=== PATIENT | female | born 1940 | race Caucasian/White ===

== ENCOUNTER 2017-12-28 17:45 | Emergency (ER) | payer OTHER, MEDICAID ==
[~2017-12-28] VITALS: Ht 175.3 cm; Wt 86.2 kg
[2017-12-28 17:58] VITALS: BP_SYST 140
[2017-12-28 20:34] VITALS: BP_SYST 136
== END 2017-12-28 20:34 | disposition home or self-care (01) ==
LOC: SED 17:45
DX: S83.91XA Sprain of unspecified site of right knee, initial encounter (principal); M54.9 Dorsalgia, unspecified; M10.9 Gout, unspecified; R03.0 Elevated blood-pressure reading, without diagnosis of hypertension; E03.9 Hypothyroidism, unspecified; Z86.73 Personal history of transient ischemic attack (TIA), and cerebral infarction without residual deficits; W19.XXXA Unspecified fall, initial encounter; Y93.89 Activity, other specified; Y92.89 Other specified places as the place of occurrence of the external cause; Y99.8 Other external cause status
CPT/HCPCS: 72100-TC; 72170-TC; 72220-TC; 73560-TC; 99284

== ENCOUNTER 2018-02-09 20:59 | Emergency (ER) | payer OTHER, MEDICAID ==
[~2018-02-09] VITALS: Ht 175.3 cm; Wt 97.5 kg
--- NOTE | 2018-02-09 20:59 | NUR ---
Patient to ER bed 4 to gown for evaluation. Side rails up.
[2018-02-09 21:01] VITALS: BP_SYST 134
--- NOTE | 2018-02-09 21:04 | NUR ---
ER Dr. Pat at bedside examining patient.
--- NOTE | 2018-02-09 21:05 | NUR ---
Pt was brought in by ambulance C/O mechanical fall. Pt is from [facility] facility and stated she fell out of her chair while reaching for her long term. Pt states she fell on her right side and denies KO. Pt has right wrist pain and a skin tear on the right forearm. Pain is currently a 2/10, denies any chest pain, shortness of breath, nausea or vomiting at this time. Vital signs are stable and will continue to monitor.
[2018-02-09 21:44] LABS: BASOPHILS % (AUTO) 1.1 % (0.0-2.0); EOSINOPHILS # (AUTO) 0.1 K/uL (0.0-0.4); EOSINOPHILS % (AUTO) 3.3 % (0.0-4.0); HEMATOCRIT 24.5 % (36-48); HEMOGLOBIN 8.5 g/dL (12.0-16.0); LYMPHOCYTES # (AUTO) 1.3 K/uL (1.0-5.5); LYMPHOCYTES % (AUTO) 32.3 % (20.5-51.5); MEAN CORPUSCULAR HEMOGLOBIN 35 pg (27-31); MEAN CORPUSCULAR HGB CONC 35 % (32-36); MEAN CORPUSCULAR VOLUME 102 fL (79.0-98.0); MONOCYTES # (AUTO) 0.4 K/uL (0.0-1.0); MONOCYTES % (AUTO) 10.3 % (1.7-9.3); NEUTROPHILS # (AUTO) 2.3 K/uL (1.8-7.7); PLATELET COUNT (AUTO) 249 K/uL (130-430); RED BLOOD CELL COUNT(AUTO) 2.41 MIL/uL (4.2-6.2); RED CELL DISTRIBUTION WIDTH 14.9 % (9.0-15.0); WHITE BLOOD COUNT (AUTO) 4.1 K/uL (4.8-10.8)
[2018-02-09 21:50] LABS: ANION GAP 11 (5-15); CALCIUM 8.4 mg/dL (8.4-11.0); CHLORIDE 100 mmol/L (98-107); GLUCOSE 85 mg/dL (70-99); POTASSIUM 3.9 mmol/L (3.5-5.1); SODIUM SERUM 134 mmol/L (136-145); UREA NITROGEN, BLOOD 33 mg/dL (8-21)
[2018-02-09 21:53] LABS: INR 1.2 (0.8-1.2); PROTHROMBIN TIME 11.7 SECS (9.5-12.5)
[2018-02-09 21:54] LABS: ALANINE AMINOTRANSFERASE 17 U/L (12-78); ASPARTATE AMINOTRANSFERASE 30 U/L (10-37); TOTAL BILIRUBIN 0.4 mg/dL (0.0-1.0)
[2018-02-09 21:57] LABS: ALCOHOL, BLOOD < 3 mg/dL (<10)
--- NOTE | 2018-02-09 22:03 | NUR ---
Critical lab value reported. Troponin level of 0.064. ED MD Pat made aware.
--- NOTE | 2018-02-09 22:20 | NUR ---
Pt's wound was assessed on the pt's right calf. Wound is cleaned and dressing applied. Pt denies any pain and tolerated proceedure well. Will continue to monitor.
--- NOTE | 2018-02-09 22:25 | NUR ---
Pt's daughter Génesis called and requested to be contacted for any updates. Génesis [phone]
--- NOTE | 2018-02-09 23:00 | NUR ---
Pt was straight cathed for urine specimen collection. Pt tolerated proceedure well, no acute distress noted at this time.
--- NOTE | 2018-02-10 00:10 | NUR ---
Pt is resting quietly in bed, no acute distress noted at this time. Vital signs are stable will continue to monitor.
[2018-02-10 00:27] LABS: BILIRUBIN,URINE NEGATIVE (NEGATIVE); BLOOD, URINE NEGATIVE (NEGATIVE); CLARITY/URINE HAZY (CLEAR); COLOR,URINE YELLOW (YELLOW); GLUCOSE,URINE NEGATIVE (NEGATIVE); KETONES,URINE NEGATIVE (NEGATIVE); LEUKOCYTE ESTERASE ,URINE TRACE (NEGATIVE); NITRITE, URINE POSITIVE (NEGATIVE); PH,URINE 5.5 (5.0-8.0); PROTEIN URINE 1+ (NEGATIVE); UROBILINOGEN,URINE 0.2 (0.2-1.0)
[2018-02-10 00:39] LABS: BACTERIA,URINE MANY /HPF (None Seen); RBC,URINE 0-3 /HPF (0-3)
[2018-02-10 00:43] LABS: BARBITURATE, URINE NEGATIVE (NEG <=200); BENZODIAZEPINE, URINE NEGATIVE (NEG <=150); CANNABINOID, URINE NEGATIVE (NEG <=50); COCAINE, URINE NEGATIVE (NEG <=150); METHAMPHETAMINES SCREEN,URINE NEGATIVE (NEG <=500); OPIATE, URINE NEGATIVE (NEG <=100); PHENCYCLIDINE SCREEN,URINE NEGATIVE (NEG <=25); UR TRICYCLIC ANTIDEPRESSANTS NEGATIVE (NEG <=300); URINE AMPHETAMINE NEGATIVE (NEG <=500); URINE METHADONE NEGATIVE (NEG <=200); URINE OXYCODONE SCREEN NEGATIVE (NEG <=100); URINE PROPOXYPHENE SCREEN NEGATIVE (NEG <=300)
[2018-02-10] MEDS ORDERED: cefTRIAXone 1 GM IVPB PREMIX 50 ML IV ONE (00:45)
--- NOTE | 2018-02-10 01:50 | NUR ---
Pt is resting quietly in bed, no acute distress noted at this time.
--- NOTE | 2018-02-10 02:20 | NUR ---
Pt is resting quietly in bed, Natalie GODFREY at bedside assisting pt into her clothes. Vitals are stable at this time will continue to monitor.
[2018-02-10] MEDS ORDERED: ASPI-858 PO (02:22)
[2018-02-10] MEDS ORDERED: COLC0.6T67 PO (02:22)
[2018-02-10] MEDS ORDERED: FURO-150 PO (02:22)
[2018-02-10] MEDS ORDERED: LEVO100T9 PO (02:22)
[2018-02-10] MEDS ORDERED: HYDR-3610 PO (02:22)
[2018-02-10] MEDS ORDERED: CARV6.2554 PO (02:22)
[2018-02-10] MEDS ORDERED: IBUP-1969 PO (02:22)
[2018-02-10] MEDS ORDERED: POTA8TAB4 PO (02:22)
[2018-02-10] MEDS ORDERED: TYC3 PO (02:22)
[2018-02-10] MEDS ORDERED: MUPI15CR12 TP (02:22)
[2018-02-10] MEDS ORDERED: DOCU-144 PO (02:22)
[2018-02-10] MEDS ORDERED: ACET325S17 PO (02:22)
--- NOTE | 2018-02-10 02:35 | NUR ---
[facility] was called in regards to this patient, brief report was given and the facility is expecting her back.
--- NOTE | 2018-02-10 02:40 | NUR ---
EMS arrived for transport. Report was given to EMS prior to transport. Pt is in stable condition, no acute distress noted.
[2018-02-10 02:45] VITALS: BP_SYST 98
== END 2018-02-10 02:45 | disposition home or self-care (01) ==
LOC: SED 20:59
DX: S63.501A Unspecified sprain of right wrist, initial encounter (principal); L97.919 Non-pressure chronic ulcer of unspecified part of right lower leg with unspecified severity; N18.9 Chronic kidney disease, unspecified; D64.9 Anemia, unspecified; E03.9 Hypothyroidism, unspecified; M10.9 Gout, unspecified; Z86.73 Personal history of transient ischemic attack (TIA), and cerebral infarction without residual deficits; Z79.82 Long term (current) use of aspirin; Z79.899 Other long term (current) drug therapy
CPT/HCPCS: 36415; 71045; 80053; 80307; 81000; 83880; 84484; 85025; 85610; 85730; 87086; 93005; 96365; 99284; G0482; J0696

== ENCOUNTER 2018-02-11 17:08 | Inpatient (IN) | payer OTHER, MEDICAID ==
[~2018-02-11] VITALS: Ht 175.3 cm; Wt 84.8 kg
[2018-02-11 17:08] VITALS: BP_SYST 128
[~2018-02-11 17:08] MED LIST: ACET325S17 PO; ASPI-858 PO; CARV6.2554 PO; COLC0.6T67 PO; DOCU-144 PO; FURO-150 PO; HYDR-3610 PO; IBUP-1969 PO; LEVO100T9 PO; MUPI15CR12 TP; POTA8TAB4 PO; TYC3 PO
--- NOTE | 2018-02-11 17:08 | NUR ---
BROUGHT IN BY [facility] FROM [facility] AND PLACED IN BED #6, TRIAGED. REPORT GIVEN TO ALISSON
--- NOTE | 2018-02-11 17:40 | NUR ---
DR COLE IN ROOM FOR EXAM.
--- NOTE | 2018-02-11 17:45 | NUR ---
PT COMES TO ER WITH C/O JU LOWER EXTREMITY DISCOMFORT. RT GREATER THAN LEFT. OPEN WOUND NOTED TO RT LOWER EXTREMITY, PUS DRAINAGE OBSERVED ON DRESSSING, REPORTS THAT SHE HURT HERSELF WHEN GETTING UP FROM WHEELCHAIR. MULTIPLE BRUISES NOTED TO JU ARMS, REPORTS RECENT FALLS. PT AAOX3, BUT HAS AN UNSTAEDY GAIT.. BLE EDEMATOUS 3+EDEMA, DRY SKIN, MOTTLED. PT DENIES ANY FEVERS/CHILLS, DENIES ANY ACUTE PAIN, DENIES SOB OR CP. AFEBRILE AT THIS TIME, AWAIITNG FOR ER MD LONG.
--- NOTE | 2018-02-11 17:53 | NUR ---
IV SL TO RT ARM, FLUSHING WELL. LAB AT BEDSIDE, CXR DONE
[2018-02-11 18:15] LABS: BASOPHILS % (AUTO) 0.7 % (0.0-2.0); EOSINOPHILS # (AUTO) 0.2 K/uL (0.0-0.4); EOSINOPHILS % (AUTO) 4.8 % (0.0-4.0); HEMOGLOBIN 7.8 g/dL (12.0-16.0); LYMPHOCYTES # (AUTO) 0.9 K/uL (1.0-5.5); LYMPHOCYTES % (AUTO) 29.4 % (20.5-51.5); MEAN CORPUSCULAR HEMOGLOBIN 34 pg (27-31); MEAN CORPUSCULAR HGB CONC 34 % (32-36); MEAN CORPUSCULAR VOLUME 102 fL (79.0-98.0); MONOCYTES # (AUTO) 0.3 K/uL (0.0-1.0); MONOCYTES % (AUTO) 9.3 % (1.7-9.3); NEUTROPHILS # (AUTO) 1.8 K/uL (1.8-7.7); NEUTROPHILS % (AUTO) 55.8 % (40.0-70.0); PLATELET COUNT (AUTO) 230 K/uL (130-430); RED BLOOD CELL COUNT(AUTO) 2.27 MIL/uL (4.2-6.2); RED CELL DISTRIBUTION WIDTH 14.6 % (9.0-15.0); WHITE BLOOD COUNT (AUTO) 3.2 K/uL (4.8-10.8)
[2018-02-11 18:18] LABS: ANION GAP 11 (5-15); CALCIUM 8.4 mg/dL (8.4-11.0); CHLORIDE 99 mmol/L (98-107); CREATININE 2.28 mg/dL (0.55-1.30); GLUCOSE 79 mg/dL (70-99); POTASSIUM 3.9 mmol/L (3.5-5.1); SODIUM SERUM 133 mmol/L (136-145); UREA NITROGEN, BLOOD 38 mg/dL (8-21)
[2018-02-11 18:21] LABS: INR 1.2 (0.8-1.2); PROTHROMBIN TIME 11.9 SECS (9.5-12.5)
[2018-02-11 18:22] LABS: ALANINE AMINOTRANSFERASE 16 U/L (12-78); ASPARTATE AMINOTRANSFERASE 33 U/L (10-37); TOTAL BILIRUBIN 0.3 mg/dL (0.0-1.0)
[2018-02-11] MEDS ORDERED: KCL 20 mEq in D5/0.45NS 1000mL 1,000 ML IV SCH ×2 (19:15→22:30)
--- NOTE | 2018-02-11 19:26 | NUR ---
Note fredis in EDM - 02/12/18 at 0159 by [email or web address] Patient will be admitted to care of Dr. Jennings. Admitted to Medsurg unit. Will go to room 106A. Belongings list completed. Summary report printed. Report will be given at bedside.
--- NOTE | 2018-02-11 19:40 | NUR ---
Transfer to [facility]. Licensed nurse present. IV present no signs or symptoms of infiltration. Report given to EPIFANIO Lopez.
--- NOTE | 2018-02-11 20:00 | NUR ---
ADMISSION: The patient, VIVI NARANJO, 78 y/o, F admitted by JEANNINE MARCELINO MD, with the diagnosis of cellulitis to r lower extremities , pt got admitted to room 106 A , was given written information regarding hospital policies, unit procedures and contact persons.
[2018-02-11 20:26] VITALS: BP_SYST 112
--- NOTE | 2018-02-11 22:30 | NUR ---
Dr. Yuen at the bedside
[2018-02-11] MEDS ORDERED: ACETAMINOPHEN/CODEINE 300 MG-30 MG TABLET PO PRN (22:45)
[2018-02-11] MEDS: KCL 20 mEq in D5/0.45NS 1000mL 1,000 ML IV SCH (22:45)
--- NOTE | 2018-02-11 23:07 | NUR ---
CONSULT REASON FOR CONSULT: CELLULITIS OF RT LOWER EXTRE PERSON I SPOKE WITH: CINDY CONSULTING PHYSICIAN: DR. EDMOND (DR. ISLAS MANAGER WEB) OIL DRILLER PHONE NUMBER: [phone] ORDERING PHYSICIAN: DR. MARCELINO
[2018-02-11] MEDS: TEMAZEPAM 15 MG CAPSULE PO SCH (23:27)
--- NOTE | 2018-02-11 23:29 | NUR ---
med pass. administered restoril PO as ordered
[2018-02-11] MEDS ORDERED: TEMAZEPAM 15 MG CAPSULE ONE (23:33)
[2018-02-12] MEDS ORDERED: VANCOMYCIN HCL 1,250 MG in NS 250 ML IV ONE ×2
[2018-02-12] MEDS ORDERED: VANCOMYCIN HCL 1000 MG/VIAL IV ONE (00:16)
[2018-02-12] MEDS ORDERED: VANCOMYCIN HCL 500 MG/VIAL IV ONE (00:16)
[2018-02-12 00:41] VITALS: BP_SYST 109
--- NOTE | 2018-02-12 00:52 | NUR ---
IV abx hung
--- NOTE | 2018-02-12 02:16 | NUR ---
Patient resting in bed with eyes closed. Breathing unlabored and even on room air. No signs of distress, no needs at this time. Fall and safety precautions in place. Bed in lowest position, brake on, alarm on, call light within reach. IVF infusing as ordered. Will continue to monitor.
--- NOTE | 2018-02-12 07:33 | NUR ---
CLOSING NOTE Gave report to Lexie. Patient resting in bed awake, alert, oriented x3, eating breakfast. Breathing unlabored and even on room air. No signs of distress, no needs at this time. Fall and safety precautions in place. Bed in lowest position, brake on, alarm on, call light within reach. IVF infusing as ordered. Endorsed cares to day shift nurse.
[2018-02-12 07:46] LABS: BASOPHILS % (AUTO) 0.6 % (0.0-2.0); EOSINOPHILS # (AUTO) 0.1 K/uL (0.0-0.4); EOSINOPHILS % (AUTO) 4.1 % (0.0-4.0); MEAN CORPUSCULAR HEMOGLOBIN 33 pg (27-31); MEAN CORPUSCULAR HGB CONC 32 % (32-36); MEAN CORPUSCULAR VOLUME 104 fL (79.0-98.0); MONOCYTES # (AUTO) 0.4 K/uL (0.0-1.0); NEUTROPHILS # (AUTO) 1.5 K/uL (1.8-7.7); NEUTROPHILS % (AUTO) 45.3 % (40.0-70.0); PLATELET COUNT (AUTO) 193 K/uL (130-430); RED BLOOD CELL COUNT(AUTO) 2.02 MIL/uL (4.2-6.2); RED CELL DISTRIBUTION WIDTH 14.3 % (9.0-15.0)
[2018-02-12 07:49] LABS: ANION GAP 10 (5-15); CHLORIDE 103 mmol/L (98-107); CREATININE 2.31 mg/dL (0.55-1.30); GLUCOSE 72 mg/dL (70-99); POTASSIUM 3.6 mmol/L (3.5-5.1); SODIUM SERUM 135 mmol/L (136-145); UREA NITROGEN, BLOOD 38 mg/dL (8-21)
[2018-02-12 08:00] VITALS: BP_SYST 106
--- NOTE | 2018-02-12 08:00 | NUR ---
initial notes rec patient awake alert with hob elevated, ivf infusing well on the r ac. no infiltration noted. noted with mulitple bruises all over her body. resp easy and unlabored, no sob noted. call light within reached and knows when to call for assistance. will continue to monitor patient.
[2018-02-12 08:09] LABS: TOTAL IRON BIND. CAPACITY 113 ug/dL (250-450)
[2018-02-12 08:16] LABS: HEMOGLOBIN 6.6 g/dL (12.0-16.0)
[2018-02-12 08:17] LABS: HEMATOCRIT 20.9 % (36-48)
--- NOTE | 2018-02-12 08:27 | NUR ---
ATTENDING MD DR MARCELINO WAS PAGED DIRECTLY, RE: HGB OF 6.6.
[2018-02-12] MEDS: COLCHICINE 0.6 MG TABLET PO SCH (08:49)
[2018-02-12] MEDS: DOCUSATE SODIUM 100 MG CAPSULE PO SCH (08:49)
[2018-02-12] MEDS: LEVOTHYROXINE SODIUM 0.1 MG TABLET PO SCH (08:50)
[2018-02-12] MEDS: ASPIRIN 325 MG TABLET PO SCH (08:50)
[2018-02-12] MEDS: CARVEDILOL 6.25 MG TABLET (COREG) PO SCH ×2 (08:50→18:00)
--- NOTE | 2018-02-12 10:00 | NUR ---
rounds due meds given as ordered and ernesto well. made patient comfortable. will continue to monitor patient.
--- NOTE | 2018-02-12 10:53 | NUR ---
Nutrition Update Vamshi Scale 14 noted. Pt admitted for cellulitis of R extremity. Diet: regular BMI: 27.8 kg/m2 RD to follow per nutrition care standards.
--- NOTE | 2018-02-12 12:00 | NUR ---
rounds seen by dr connelly and with order.
[2018-02-12 12:29] VITALS: BP_SYST 107
--- NOTE | 2018-02-12 12:44 | NUR ---
CONSULTATION PAGED/CALLED Reason for Consultation: ANEMIA Person Who was Notified: SPOKE WITH VESNA FROM EXCHANGE Consulting Physician: Vice President Biostatistics Specialty: HEMATOLOGY/ONCOLOGY Ordering Physician:
--- NOTE | 2018-02-12 14:00 | NUR ---
md seen by dr gramajo and with order. turned repositioned for comfort.
--- NOTE | 2018-02-12 15:20 | NUR ---
rounds blood transfusion started on the r forearm. checked with sarah olsen at bedside prior to blood transfusion.explained to patient re blood transfusion , to watch for untoward reaction like chills, fever, chest pain sob, back pain, etc. stayed at bedside for 15 min and no reaction noted. will continue to monitor patient.
--- NOTE | 2018-02-12 16:00 | NUR ---
CONSULTATION PAGED/CALLED Reason for Consultation: WOUND ON RIGHT LEG Person Who was Notified: SPOKE WITH RAMIREZ FROM OFFICE Consulting Physician: Dragline Engineer Specialty: SURGERY Ordering Physician:
--- NOTE | 2018-02-12 16:00 | NUR ---
rounds blood transfusion in progress and no untoward reaction noted. resting comfortably, turned repositioned for comfort. call light at intervals. no sob noted.
[2018-02-12 16:17] VITALS: BP_SYST 112
--- NOTE | 2018-02-12 18:30 | NUR ---
rounds blood transfusion completed and no untoward reaction noted. dr lang at bedside and talking to the patient, possibly going for sx tonight. npo maintained.
--- NOTE | 2018-02-12 19:00 | NUR ---
notes blood transfusion 2nd unit was checked with monisha olsen at bedside. instructed patient to watch again for any blood transfusion reaction again like chills, fever, chest pain, back ache. no c/o pain
[2018-02-12] MEDS: EPOETIN ALFA 10,000 UNITS/ML VIAL SUBCUT SCH (19:02)
--- NOTE | 2018-02-12 19:15 | NUR ---
rounds vital signs was rechecked and is stable. dr lang at bedside and will take patient to surgery in an hour. npo maintained and no sob noted.
--- NOTE | 2018-02-12 19:50 | NUR ---
closing notes pt was sent to sx via bed , npo was maintained, 2nd unit of blood transfusion in progress.
--- NOTE | 2018-02-12 20:00 | NUR ---
Pt off to surgery via bed Pt alert, awake, currently receiving 2nd unit of PRBC. No s/s of distress noted.
--- NOTE | 2018-02-12 20:20 | NUR ---
Génesis daughter notified Notified Génesis daughter, that patient is in OR for R lower leg debridement. Delay of notification was due to wrong contact number written in facesheet. Working number was given by [facility] where patient resides.
[2018-02-12 20:24] LABS: HEMATOCRIT 27.2 % (36-48); HEMOGLOBIN 8.9 g/dL (12.0-16.0)
[2018-02-12] MEDS ORDERED: ONDANSETRON HCL 4 MG/2 ML VIAL IVP PRN (20:45)
[2018-02-12] MEDS ORDERED: fentaNYL CITRATE/PF 100 MCG/2 ML AMP IVP PRN ×2 (20:45)
[2018-02-12] MEDS ORDERED: POLYMYXIN 500,000/BACIT.10,000 UNITS in NS IRR 1 L IR ONE (20:47)
[2018-02-12 21:35] VITALS: BP_SYST 123
--- NOTE | 2018-02-12 21:35 | NUR ---
PT BACK FROM SURGERY Pt alert awake oriented x2, back from surgery s/p I&D of R. leg wound, dressing C/D/I. VSS. Pt denies pain at this time, except for c/o pain when BP cuff is inflating. IVF continued as ordered on R. FA 20G. Blood transfusion completed at 2115 per PACU nurse, no transfusion rxn noted. Pt asking for dinner. Saved dinner tray from pantry given to patient. Pt made comfortable. Call light within reach. Will continue to monitor.
[2018-02-12 22:05] VITALS: BP_SYST 125
[2018-02-12] MEDS: KCL 20 mEq in D5/0.45NS 1000mL 1,000 ML IV SCH (22:27)
--- NOTE | 2018-02-12 22:30 | NUR ---
I.S. use RT in room and instructed pt on how to use I.S. Per RT pt able to do 500ml only. Pt needs reinforcement.
[2018-02-12] MEDS: TEMAZEPAM 15 MG CAPSULE PO SCH (22:54)
[2018-02-13 00:05] VITALS: BP_SYST 130
--- NOTE | 2018-02-13 01:20 | NUR ---
Rounds Pt awake, forgetful. No s/s distress noted. R. leg maintained elevated on pillow, dressing C/D/I. Pt denies any pain. Call light within reach. To monitor.
--- NOTE | 2018-02-13 04:25 | NUR ---
Rounds Pt asleep. No s/s distress noted. IVF infusing as ordered R. FA 20G no s/s infiltration noted. Safety measures in place. Call light within reach. To monitor.
[2018-02-13 04:36] VITALS: BP_SYST 149
[2018-02-13] MEDS: LEVOTHYROXINE SODIUM 0.1 MG TABLET PO SCH (06:49)
--- NOTE | 2018-02-13 06:50 | NUR ---
Closing notes Pt asleep, easily arousable. No s/s distress noted. Pt denies any pain. R. leg dressing C/D/I, floated on pillow. IVF infusing as ordered R. FA20G no s/s infiltration noted. Bed low, locked, siderails x 3 up. Call light/items within reach. To endorse to am nurse.
[2018-02-13 07:28] LABS: EOSINOPHILS # (AUTO) 0.1 K/uL (0.0-0.4); EOSINOPHILS % (AUTO) 3.1 % (0.0-4.0); HEMATOCRIT 28.4 % (36-48); LYMPHOCYTES # (AUTO) 0.9 K/uL (1.0-5.5); LYMPHOCYTES % (AUTO) 28.1 % (20.5-51.5); MEAN CORPUSCULAR HEMOGLOBIN 31 pg (27-31); MEAN CORPUSCULAR HGB CONC 32 % (32-36); MEAN CORPUSCULAR VOLUME 98 fL (79.0-98.0); MONOCYTES # (AUTO) 0.4 K/uL (0.0-1.0); NEUTROPHILS # (AUTO) 1.8 K/uL (1.8-7.7); NEUTROPHILS % (AUTO) 53.8 % (40.0-70.0); PLATELET COUNT (AUTO) 192 K/uL (130-430); RED BLOOD CELL COUNT(AUTO) 2.89 MIL/uL (4.2-6.2); RED CELL DISTRIBUTION WIDTH 17.7 % (9.0-15.0); WHITE BLOOD COUNT (AUTO) 3.2 K/uL (4.8-10.8)
[2018-02-13 07:47] LABS: ANION GAP 10 (5-15); CHLORIDE 104 mmol/L (98-107); CREATININE 2.24 mg/dL (0.55-1.30); GLUCOSE 77 mg/dL (70-99); POTASSIUM 3.6 mmol/L (3.5-5.1); SODIUM SERUM 135 mmol/L (136-145); UREA NITROGEN, BLOOD 38 mg/dL (8-21)
[2018-02-13 08:00] VITALS: BP_SYST 129
--- NOTE | 2018-02-13 08:00 | NUR ---
Opening Note Report received from [facility] shift nurse. patient is currently awake and resting in bed. RLE dressing is dry and intact. IV is on the RFA 20g running D51/2NS+20KCL@40. Patient is only doing 500 on the IS. Patient has bruising on BUE and back. Call light is within reach and bed is in low position. Will continue to monitor.
[2018-02-13] MEDS: DOCUSATE SODIUM 100 MG CAPSULE PO SCH (09:02)
[2018-02-13] MEDS: CARVEDILOL 6.25 MG TABLET (COREG) PO SCH ×2 (09:02→17:25)
[2018-02-13] MEDS: COLCHICINE 0.6 MG TABLET PO SCH (09:02)
[2018-02-13] MEDS: ASPIRIN 325 MG TABLET PO SCH (09:02)
--- NOTE | 2018-02-13 10:24 | NUR ---
Rounds Patient was cleaned and turned. Tolerated well.
[2018-02-13 12:26] VITALS: BP_SYST 138
--- NOTE | 2018-02-13 12:34 | NUR ---
Rounds Patient is resting in bed. No signs of distress noted.
[2018-02-13] MEDS: HYDROcodone/ACETAMIN 10-325 MG TAB PO PRN (13:27)
[2018-02-13] MEDS: KCL 20 mEq in D5/0.45NS 1000mL 1,000 ML IV SCH (13:31)
--- NOTE | 2018-02-13 14:32 | NUR ---
Rounds Patient was cleaned and turned. Tolerated well.
--- NOTE | 2018-02-13 16:20 | NUR ---
MD Rounds Dr. Ruiz rounded on the patient. MD changed dressing on the right leg. Patient tolerated well.
[2018-02-13 16:48] VITALS: BP_SYST 114
--- NOTE | 2018-02-13 18:26 | NUR ---
Closing Note Patient is resting in bed. No signs of distress noted. Iv is on the RFA 20 running D51/2NS+20kcl@40. All vital signs have been stable throughout the shift. Call light is within reach and bed is in low position. Will endorse care to the oncoming nurse.
--- NOTE | 2018-02-13 19:55 | NUR ---
OPENING NOTE Patient is awake AOX4, sitting upright in no sign of distress, oxygen saturation is 100% on room air. SCD on left leg is on, dressing over right leg is CDI. 20G RFA has IV fluids infusing as ordered. Bed is locked to lowest position, bed alarm on. Instructed on use of call light. Updated board, will monitor.
[2018-02-13 20:00] VITALS: BP_SYST 128
--- NOTE | 2018-02-13 21:40 | NUR ---
ROUNDS Patient requested if her sleeping pill could be saved for 10pm. She was cleaned and repositioned. Initially the patient stated that she was dry and did not need to be changed or repositioned. We checked and her pad was wet. I provided education and explained why it is important to be cleaned and repositioned. She verbalized understanding and agreed. Will monitor.
[2018-02-13] MEDS: TEMAZEPAM 15 MG CAPSULE PO SCH (21:56)
[2018-02-14] MEDS ORDERED: VANCOMYCIN HCL 1,250 MG in NS 250 ML IV SCH (01:00)
[2018-02-14 01:09] VITALS: BP_SYST 140
--- NOTE | 2018-02-14 01:23 | NUR ---
ROUNDS Patient was administered due antibiotic; side effects were explained and she verbalized understanding. Safety precautions in place. Will monitor.
--- NOTE | 2018-02-14 02:23 | NUR ---
ROUNDS Patient is resting w/ eyes closed, in high fowlers position and pillow support. She was comfortable and initially did not was to reposition. She was gently turned to her right side and a pillow was placed on her back for support. No further needs. Safety precautions in place. Will monitor.
--- NOTE | 2018-02-14 02:49 | NUR ---
ROUNDS Patient is awake and called due to noise in the room. The patient was reporting a chirping noise and the t.v. on. I explained the SCD's make a chirping sound which can't be turned off. The neighbor had the t.v. on and was asleep and not watching, I turned the t.v. off and let her nurse know. Will monitor.
--- NOTE | 2018-02-14 03:50 | NUR ---
ROUNDS Patient awake and pressed the call light, she heard the IV alarm. Patient was repositioned for comfort; she was a little hesitant and indicated she was fine and wanted to sleep. We let her know that it would be a gentle procedure and she could sleep as soon as she was repositioned and she agreed. She denied pain and declined pain medication at this time. Safety precautions in place, will monitor.
[2018-02-14] MEDS: HYDROcodone/ACETAMIN 10-325 MG TAB PO PRN ×2 (05:37→15:32)
--- NOTE | 2018-02-14 05:50 | NUR ---
ROUNDS Patient was cleaned, provided with new linen and repositioned for comfort. She reported pain 4/10 and was administered prn pain medication as ordered. The bed scale is not functioning. I was not able to obtain a weight. Safety precautions in place and call light near.
[2018-02-14] MEDS: LEVOTHYROXINE SODIUM 0.1 MG TABLET PO SCH (06:41)
--- NOTE | 2018-02-14 06:50 | NUR ---
CLOSING NOTES Patient is resting w/ eyes closed in no sign of distress, SCD on left leg is on, dressing over right leg is CDI. 20G RFA has IV fluids infusing as ordered. Administered morning synthroid mediciation. Needs met throughout shift. Safety precautions in place, will endorse care to oncoming nurse.
[2018-02-14 07:30] VITALS: BP_SYST 113
--- NOTE | 2018-02-14 08:00 | NUR ---
AM NOTES Patient laying in bed resting. No s/s of acute distress or SOB. IV site patent, intact, dressing is dry. Bed in lowest position,call light within reach.
[2018-02-14] MEDS: ASPIRIN 325 MG TABLET PO SCH (08:35)
[2018-02-14] MEDS: DOCUSATE SODIUM 100 MG CAPSULE PO SCH (08:35)
[2018-02-14] MEDS: COLCHICINE 0.6 MG TABLET PO SCH (08:35)
[2018-02-14] MEDS: CARVEDILOL 6.25 MG TABLET (COREG) PO SCH ×2 (08:36→17:06)
--- NOTE | 2018-02-14 11:30 | NUR ---
ROUNDS Patient laying in bed resting. No s/s of distress or SOB. All needs being met. Bed in lowest position, call light within reach.
[2018-02-14 11:54] VITALS: BP_SYST 117
--- NOTE | 2018-02-14 14:30 | NUR ---
DC Planning: s/w pt. regarding dcp to snf. pt. agreed . CM notified Génesis cuevas, caregiver, also agreed with the POC. The pt. is bedbound, cellulitis of LE , needs wound care and IV abx at the snf.
--- NOTE | 2018-02-14 16:18 | NUR ---
DC Planning: Late entry: Faxed snf referral inquiry to [facility] and received call back from Donnie with the acceptance. He gave room assignment to room 38A, bed available now. RN to report # [phone]. DC DC package delivered to nursing station. Elvia GODFREY made aware. Addendum: 02/14/18 at 1638 by Michael Cortes RN Per Elvia, she will call the ambulance once received the final dc order from PCP and to notify Génesis Ruth # [phone] when pt.is leaving [facility].
--- NOTE | 2018-02-14 16:49 | NUR ---
D/C PLANNING Followed up with case maker regarding d/c. Bed is available at [facility], room 38A. Daughter Génesis and patient are aware. Attending MD Eaton paged for D/C order. Will cont to monitor.
--- NOTE | 2018-02-14 16:58 | NUR ---
SPOKE WITH DR GALAVIZ Regarding d/c order. wants to hold d/c until tomorrow for Dr. Yuen to evaluate patient. Patient and family informed.
[2018-02-14] MEDS: KCL 20 mEq in D5/0.45NS 1000mL 1,000 ML IV SCH ×2 (17:11→22:45)
--- NOTE | 2018-02-14 17:30 | NUR ---
WOUND CARE/INCONTINENCE CARE -Linen and gown changed. Patient did not have a BM, unable to collect stool at this time. -Wound care provided to sacral area, left thigh and right leg. Patient tolerated procedure well.
--- NOTE | 2018-02-14 18:00 | NUR ---
SPOKE WITH [facility] Regarding MD holding D/C. Facility states they will hold bed until tomorrow.
[2018-02-14 18:39] VITALS: BP_SYST 111
--- NOTE | 2018-02-14 18:51 | NUR ---
CLOSING NOTES Patient laying in bed resting, no s/s of distress or SOB. All needs met throughout shift. Safety and fall precautions maintained. IV site patent, intact, dressing is dry. Bed in lowest position, call light within reach. Will endorse to oncoming RN.
[2018-02-14] MEDS ORDERED: FOLIC ACID 1 MG TABLET PO SCH (19:30)
--- NOTE | 2018-02-14 19:48 | NUR ---
INITIAL NOTE AT INITIAL ASSESSMENT, PATIENT IS RESTING IN BED, STABLE, NO SIGNS OF RESPIRATORY DISTRESS. SHE IS VERY SLEEPY. PATIENT VERBALIZES NO PAIN. PLAN OF CARE FOR THE EVENING IS COMMUNICATED WITH THE PATIENT. CALL LIGHT- TEACH BACK IS SUCCESSFUL. BED IS LOCKED, ALARMED, AND AT THE LOWEST LEVEL. FALL AND SAFETY PRECAUTIONS WILL BE IN PLACE THROUGHOUT THE SHIFT.
[2018-02-14 19:50] VITALS: BP_SYST 127
[2018-02-14] MEDS: TEMAZEPAM 15 MG CAPSULE PO SCH (20:45)
[2018-02-14] MEDS: CEFTAROLINE FOSAMIL ACETATE 400 MG in NS 250 ML IV SCH (20:46)
--- NOTE | 2018-02-14 21:46 | NUR ---
NOTE PATIENT IS RESTING IN BED, STABLE, NO SIGNS OF RESPIRATORY DISTRESS. CALL LIGHT WITHIN REACH. BED IS LOCKED, ALARMED, AND AT THE LOWEST LEVEL.
--- NOTE | 2018-02-14 23:43 | NUR ---
NOTE PATIENT GIVEN A BED BATH BY CAM ORTEGA AND REPOSITIONED FOR COMFORT. PATIENT IS RESTING IN BED, STABLE, NO SIGNS OF RESPIRATORY DISTRESS. CALL LIGHT WITHIN REACH. BED IS LOCKED, ALARMED, AND AT THE LOWEST LEVEL.
[2018-02-14 23:48] VITALS: BP_SYST 118
--- NOTE | 2018-02-15 01:40 | NUR ---
NOTE PATIENT IS SLEEPING, STABLE, NO SIGNS OF RESPIRATORY DISTRESS. CALL LIGHT WITHIN REACH. BED IS LOCKED, ALARMED, AND AT THE LOWEST LEVEL.
--- NOTE | 2018-02-15 03:38 | NUR ---
NOTE PATIENT IS SLEEPING, STABLE, NO SIGNS OF RESPIRATORY DISTRESS. CALL LIGHT WITHIN REACH. BED IS LOCKED, ALARMED, AND AT THE LOWEST LEVEL.
--- NOTE | 2018-02-15 05:34 | NUR ---
NOTE PATIENT IS SLEEPING, STABLE, NO SIGNS OF RESPIRATORY DISTRESS. CALL LIGHT WITHIN REACH. BED IS LOCKED, ALARMED, AND AT THE LOWEST LEVEL.
[2018-02-15] MEDS: LEVOTHYROXINE SODIUM 0.1 MG TABLET PO SCH (06:27)
--- NOTE | 2018-02-15 06:55 | NUR ---
CLOSING NOTE PATIENT GIVEN HER MORNING DOSE OF SYNTHROID, SHE VERBALIZES NO PAIN. PATIENT IS RESTING IN BED, STABLE, NO SIGNS OF RESPIRATORY DISTRESS. THROUGHOUT THE NIGHT, PATIENT SLEPT WELL. CALL LIGHT IS WITHIN REACH. BED IS LOCKED, ALARMED, AND AT THE LOWEST LEVEL. FALL AND SAFETY PRECAUTIONS HAVE BEEN IN PLACE THROUGHOUT THE SHIFT. WILL CONTINUE TO MONITOR UNTIL SHIFT REPORT IS GIVEN AT BEDSIDE TO AM NURSE.
[2018-02-15 07:13] LABS: HEMATOCRIT 27.4 % (36-48); HEMOGLOBIN 9.4 g/dL (12.0-16.0); MEAN CORPUSCULAR HEMOGLOBIN 34 pg (27-31); MEAN CORPUSCULAR HGB CONC 34 % (32-36); MEAN CORPUSCULAR VOLUME 99 fL (79.0-98.0); PLATELET COUNT (AUTO) 248 K/uL (130-430); RED BLOOD CELL COUNT(AUTO) 2.78 MIL/uL (4.2-6.2); RED CELL DISTRIBUTION WIDTH 17.5 % (9.0-15.0); WHITE BLOOD COUNT (AUTO) 4.3 K/uL (4.8-10.8)
[2018-02-15 07:30] VITALS: BP_SYST 129
--- NOTE | 2018-02-15 07:41 | NUR ---
AM NOTES Patient laying in bed awake, alert, orientedx3. No s/s of acute distress or SOB. IV site patent, intact, dressing is dry. Bed in lowest position,call light within reach.
[2018-02-15] MEDS: ASPIRIN 325 MG TABLET PO SCH (08:39)
[2018-02-15] MEDS: DOCUSATE SODIUM 100 MG CAPSULE PO SCH (08:39)
[2018-02-15] MEDS: COLCHICINE 0.6 MG TABLET PO SCH (08:40)
[2018-02-15] MEDS: CARVEDILOL 6.25 MG TABLET (COREG) PO SCH ×2 (08:40→17:50)
[2018-02-15] MEDS: CEFTAROLINE FOSAMIL ACETATE 400 MG in NS 250 ML IV SCH ×2 (08:41→21:13)
[2018-02-15] MEDS: HYDROcodone/ACETAMIN 10-325 MG TAB PO PRN (08:42)
[2018-02-15 09:00] LABS: BASOPHILS % (MANUAL) 0 % (0-2); EOSINOPHILS % (MANUAL) 6 % (0-7); LYMPHOCYTES % (MANUAL) 47 % (20-46); MONOCYTES % (MANUAL) 11 % (0-11)
[2018-02-15] MEDS ORDERED: FOLIC ACID 1 MG TABLET PO SCH (09:00)
--- NOTE | 2018-02-15 10:05 | NUR ---
Discharge Planning: DCP arrange transportation with [facility] ([phone]) Will Call, DCP confirmed with Ar[facility] at [facility] (f [phone] p [phone]) Rm 38A nurse to nurse [phone]. DCP made nurse aware, pt packet at nurses station.
[2018-02-15 12:40] VITALS: BP_SYST 116
--- NOTE | 2018-02-15 12:44 | NUR ---
ROUNDS Patient laying in bed resting. No s/s of distress or SOB. All needs being met. Bed in lowest position, bed alarm on, call light within reach. Will cont. to monitor.
--- NOTE | 2018-02-15 15:00 | NUR ---
WOUND CARE Wound care provided with EPIFANIO Acosta. Pictures taken.
--- NOTE | 2018-02-15 15:02 | NUR ---
WOUND EVALUATION: Wound Consult received from Dr. Yuen. Thank you, Dr. Yuen, for the consult. Patient received in a Marmarth Bed with a mattress, awake, alert, and oriented x 3. Patient is unable to turn independently. Vamshi Score is a 17. Past Medical History: Hypertension, Hypothyroidism, Lymphedema of the lower extremities, Gouty Arthritis, Obesity, cardiac arrhythmia. Admitted to the hospital with cellulitis of the right lower extremity. Recent Labs: WBC 4.3, RBC 2.78, hemoglobin 9.4, hematocrit 27.4, BUN 38, creatinine 2.24, calcium 8.0, TIBC 113, albumin 2.0. Intrinsic factors that delay wound healing: Anemia, hypoalbuminemia. Extrinsic factors that delay wound healing: Decreased mobility. Microbiology: Lead culture results 2 in progress. MRSA screen results negative. Wound culture lower extremity positive for Staphylococcus aureus, and Acinetobacter Lwoffii. Surgical wound culture positive for MRSA. Wound Assessment: 1. Right mid anterior lateral lower extremity: Infected wound (status post fall where lower extremity wheelchair, causing a wound at patient's residence), present on admission. Wound is status post incision and drainage by Dr. Ruiz on 02/12/18. Wound bed has 70% yellow tissue, 15% pink tissue, 10% black tissue, 5% red tissue. No odor, no drainage. Periwound intact. Wound measures 5.2 cm x 5.7 cm x 1.7 cm. Recommend: Cleanse wound with normal saline. Put SurePrep onto april-wound. Pack wound with moist gauze, then cover with dry gauze as ordered by Dr. Ruiz Cover with a foam dressing. Perform wound care daily, and as needed for dressing soiling or dislodgement. Upon discharge, recommend cleanse wound with normal saline. Put SurePrep onto periwound. Apply Venelex ointment onto wound bed. Pack wound with one 1.6 inch tender wet dressing. Cover with foam dressing. Perform wound care daily, and as needed for dressing soiling or dislodgment. 2. Right mid anterior lateral lower extremity: Circular area of purple discoloration, present on admission. No odor, no drainage. Site measures 1.6 cm x 2.0 cm. Recommend: No dressing needed. Continue to monitor site qshift for worsening condition. 3. Sacral area: Scar tissue, present on admission. Site has area of non-intact skin that has 100% red tissue. Site measures 0.5 cm x 0.2 cm. 4 Upper Sacral area: Scar tissue, present on admission. Site has area of non-intact skin that has 100% red tissue. Site measures 0.7 cm x 0.3 cm. Recommend: Cleanse sites with normal saline. Pat dry. Apply moisture barrier cream onto involved areas. Cover with Sacral foam dressing. Perform site care daily, and as needed for dressing soiling or dislodgement. Recommend: Cleanse sites with normal saline. Pat dry. Apply moisture barrier cream onto involved areas. Cover with Sacral foam dressing. Perform site care daily, and as needed for dressing soiling or dislodgement. 5. Left posterior lateral thigh: Skin tear, present on admission. Site has 100% pink tissue. No odor, no drainage. Periwound intact. Measures 0.5 cm x 0.5 cm. Recommend: Cleanse site with normal saline. Pat dry. Apply moisture barrier cream onto involved area. Cover with foam dressing. Perform site care daily, and as needed for dressing soiling or dislodgement. Also recommend: Encourage and assist patient with repositioning side to side only patient every 2 hours with pillow support, and off-load pressure areas with pillows for pressure re-distribution. Offload, elevate and float bilateral heels with pillows. Perform skin care and monitor skin integrity Q shift. Use moisture barrier cream on buttocks and other moisture susceptible areas QID and as needed for soiling. Place patient on a low air-loss mattress.
--- NOTE | 2018-02-15 16:20 | NUR ---
Dietitian Recommendations * Recommend regular diet w/ Ensure Enlive BID (oral supplement provides an additional 700 kcal/day and 40 gm protein/day) LP, RD Please refer to Nutrition Assessment for details.
[2018-02-15 16:22] VITALS: BP_SYST 112
[2018-02-15 16:39] VITALS: BP_SYST 112
[2018-02-15 16:44] VITALS: BP_SYST 112
--- NOTE | 2018-02-15 16:57 | NUR ---
CALLED [facility] Regarding transportation time. Earliest time available is 2100 today. Patient and daughter informed.
[2018-02-15] MEDS: EPOETIN ALFA 10,000 UNITS/ML VIAL SUBCUT SCH (17:50)
--- NOTE | 2018-02-15 18:30 | NUR ---
[facility]OKE WITH [facility] Spoke with Cheri GODFREY from [facility] regarding patient's condition. Due to patient being positive for MRSA of the wound, transfer may not be possible tonight due to no isolation room availability. Awaiting call back from Dr. Hightower.
--- NOTE | 2018-02-15 19:45 | NUR ---
INITIAL NOTE PATIENT MADE AWARE ABOUT POSSIBLE DISCHARGE HOLD DUE TO HER POSTIVE MRSA CULTURE RESULT AT THIS TIME. INITIAL ASSESSMENT, PATIENT IS RESTING IN BED, STABLE, NO SIGNS OF RESPIRATORY DISTRESS. PATIENT VERBALIZES NO PAIN. PLAN OF CARE FOR THE EVENING IS COMMUNICATED WITH THE PATIENT. CALL LIGHT- TEACH BACK IS SUCCESSFUL. BED IS LOCKED, ALARMED, AND AT THE LOWEST LEVEL. FALL, SAFETY, AND ISOLATION PRECAUTIONS WILL BE IN PLACE THROUGHOUT THE SHIFT.
--- NOTE | 2018-02-15 20:03 | NUR ---
Jesse Melo dialed [phone], s/w Talya Addendum: 02/15/18 at 2005 by Nela Mojica MT/ Jesse Yuen
[2018-02-15] MEDS ORDERED: PROPOFOL 200MG/ 20ML VIAL (DIPRIVAN) IV ONE (20:05)
[2018-02-15] MEDS ORDERED: WATER FOR IRRIGATION,STERILE 1,000 ML IRRIG.SOLN IR ONE (20:05)
[2018-02-15] MEDS ORDERED: LR 1,000 ML IV.SOLN IV ONE (20:05)
--- NOTE | 2018-02-15 20:12 | NUR ---
COMMUNICATION WITH DR. RYLAND MARCELINO HAS PAGED BACK AT THIS TIME, HE WAS MADE AWARE OF [facility]'S REQUEST TO HOLD PATIENT'S DISCHARGE DUE TO NEW POSITIVE MRSA CULTURE RESULT OF PATIENT'S LEG WOUND. HE HAS VERBALIZED THAT HE WILL SPEAK TO [facility] HIMSELF TO TRY TO ARRANGE DISCHARGE FOR TONIGHT. WILL AWAIT FOR MD'S CALL BACK. CHARGE NURSE WILL BE MADE AWARE.
--- NOTE | 2018-02-15 20:19 | NUR ---
DISCHARGE COMMUNICATION WITH DR. RYLAND MARCELINO HAS CALLED BACK AT THIS TIME, HE VERBALIZED THAT HE SPOKE TO THE AIR DEFENCE OFFICER AT [facility], AND THAT A BED WILL BE PREPARED FOR PATIENT'S ARRIVAL NOW, AND ALSO TO CONTINUE THE PATIENT TONIGHT. ORDER READ BACK, VERIFIED, AND DISCHARGE WILL BE INITIATED NOW. PATIENT WILL BE MADE AWARE IMMEDIATELY. CHARGE NURSE PATTI IS AWARE.
--- NOTE | 2018-02-15 20:37 | NUR ---
COMMUNICATION WITH EZE PARKS RN RN EVE WHO WILL BE TAKING CARE OF THE PATIENT HAS BEEN GIVEN REPORT AT THIS TIME. SHE VERBALIZED THAT THE PATIENT WILL BE GOING IN ISOLATION ROOM 38B, HER CALL BACK NUMBER IS . SHE HAS REQUESTED TO NOT DISCONNECT PATIENT'S IV, REQUEST WILL BE GRATED, PATIENT'S IV WILL BE STERILE LOCKED ON DISCHARGE.
--- NOTE | 2018-02-15 20:47 | NUR ---
COMMUNICATION WITH FAMILY PATIENT'S DAUGHTER BAILEY JUSTO HAS BEEN AWARE THAT DR. MARCELINO HAS ORDERED TO TRANSFER THE PATIENT TO [facility]. BAILEY KEMP HAS AGREED WITH VERBAL CONFIRMATION TO EPIFANIO WALL AND JACEY AGUIRRE RN AT THIS TIME.
--- NOTE | 2018-02-15 20:50 | NUR ---
COMMUNICATION WITH [facility] HAS CONFIRMED THAT THEY WILL BE ARRIVING TO TRANSFER THE PATIENT AT 2200 TONIGHT. PATIENT AND RECEIVING RN AT [facility] WILL BE MADE AWARE AT THIS TIME.
--- NOTE | 2018-02-15 20:51 | NUR ---
Called [facility], dialed [phone], s/w Tika. ETA is 2200.
[2018-02-15 21:00] VITALS: BP_SYST 125
[2018-02-15] MEDS: TEMAZEPAM 15 MG CAPSULE PO SCH (21:23)
--- NOTE | 2018-02-15 22:09 | NUR ---
PATIENT DISCHARGED AT THIS TIME, [facility] ESTRADA AND ANOTHER EMT VIA [facility]. REPORT GIVEN. VERBAL CONFIRMATION FROM MACHINE HEEL SPRAYER FOR PATIENT'S DESTINATION TO [facility] ROOM 38B WITH EPIFANIO PRADO. PATIENT'S IV HAS BEEN STERILE LOCKED AND WILL BE KEPT IN PER [facility]'S REQUEST. PATIENT'S HOSPITAL ID BAND HAS BEEN REMOVED, WHITE BAND WITH HER NAME AND HAS BEEN PLACED. PATIENT IS STABLE, BELONGINGS SENT WITH PATIENT. DAUGHTER BAILEY VERBALIZES SHE WILL VISIT PATIENT AT [facility] IN THE AM.
[2018-02-16 12:00] LABS: FERRITIN 294 ng/mL (15-150); FOLATE (FOLIC ACID) <2.1 ng/mL (>3.0)
== END 2018-02-15 22:10 | DRG 579 ==
LOC: SED 17:08 → SMU 19:08
PROVIDERS: ADMIT Family Medicine; ATTEND Family Medicine
PROC: 30233N1 Transfusion of Nonautologous Red Blood Cells into Peripheral Vein, Percutaneous Approach (ICD-10-PCS; 2017-03-15)
PROC: 0J9N0ZZ Drainage of Right Lower Leg Subcutaneous Tissue and Fascia, Open Approach (ICD-10-PCS; principal; 2018-02-12 22:00)
DX: L03.115 Cellulitis of right lower limb (principal); E43 Unspecified severe protein-calorie malnutrition; N17.9 Acute kidney failure, unspecified; L97.919 Non-pressure chronic ulcer of unspecified part of right lower leg with unspecified severity; L03.116 Cellulitis of left lower limb; L02.415 Cutaneous abscess of right lower limb; D53.9 Nutritional anemia, unspecified; E03.9 Hypothyroidism, unspecified; E66.9 Obesity, unspecified; E86.0 Dehydration; I12.9 Hypertensive chronic kidney disease with stage 1 through stage 4 chronic kidney disease, or unspecified chronic kidney disease; M10.9 Gout, unspecified; N18.9 Chronic kidney disease, unspecified; I87.2 Venous insufficiency (chronic) (peripheral); I89.0 Lymphedema, not elsewhere classified; A49.01 Methicillin susceptible Staphylococcus aureus infection, unspecified site; I50.9 Heart failure, unspecified; I48.91 Unspecified atrial fibrillation; I73.9 Peripheral vascular disease, unspecified; Z68.27 Body mass index [BMI] 27.0-27.9, adult; Z90.710 Acquired absence of both cervix and uterus; Z91.81 History of falling; Z79.899 Other long term (current) drug therapy; Z79.82 Long term (current) use of aspirin; Z86.73 Personal history of transient ischemic attack (TIA), and cerebral infarction without residual deficits
CPT/HCPCS: 36415; 71045; 80048; 80053; 82607; 82728; 82746; 83540-TC; 83550-TC; 83605; 83880; 84484; 85007; 85018-TC; 85025; 85027; 85610-TC; 85730-TC; 86886; 86900; 86901; 86920; 87040-TC; 87070; 87070-TC; 87075-TC; 87081; 87186-TC; 88304; 93306; 93971; 94010; 94640; 99285; J0712; J0885; J2704; J3370; J7050; J7120; P9021

== ENCOUNTER 2018-02-24 14:10 | Inpatient (IN) | payer OTHER, MEDICAID ==
[~2018-02-24] VITALS: Ht 162.6 cm; Wt 87.5 kg
[~2018-02-24 14:10] MED LIST changes: -FURO-150 PO; -IBUP-1969 PO; -MUPI15CR12 TP; -POTA8TAB4 PO
[2018-02-24 14:21] VITALS: BP_SYST 100; BP_SYST 96
[2018-02-24] MEDS ORDERED: NACL 0.9% 1,000 ML IV ONE (14:29)
[2018-02-24 15:19] LABS: HEMOGLOBIN 12.8 g/dL (12.0-16.0); MEAN CORPUSCULAR HEMOGLOBIN 33 pg (27-31); MEAN CORPUSCULAR HGB CONC 33 % (32-36); MEAN CORPUSCULAR VOLUME 102 fL (79.0-98.0); PLATELET COUNT (AUTO) 271 K/uL (130-430); RED BLOOD CELL COUNT(AUTO) 3.83 MIL/uL (4.2-6.2); RED CELL DISTRIBUTION WIDTH 19.5 % (9.0-15.0); WHITE BLOOD COUNT (AUTO) 5.8 K/uL (4.8-10.8)
[2018-02-24 15:26] LABS: ANION GAP 11 (5-15); CALCIUM 9.2 mg/dL (8.4-11.0); CHLORIDE 112 mmol/L (98-107); CREATININE 2.66 mg/dL (0.55-1.30); GLUCOSE 85 mg/dL (70-99); POTASSIUM 4.4 mmol/L (3.5-5.1); SODIUM SERUM 143 mmol/L (136-145); UREA NITROGEN, BLOOD 36 mg/dL (8-21)
[2018-02-24 15:30] LABS: ALANINE AMINOTRANSFERASE 21 U/L (12-78); ASPARTATE AMINOTRANSFERASE 35 U/L (10-37); LIPASE 108 U/L (73-393); TOTAL BILIRUBIN 0.6 mg/dL (0.0-1.0)
[2018-02-24 15:58] LABS: BAND % (MANUAL) 26 % (0-6); LYMPHOCYTES % (MANUAL) 7 % (20-46); MONOCYTES % (MANUAL) 4 % (0-11)
[2018-02-24 15:59] LABS: BASOPHILS % (MANUAL) 0 % (0-2); EOSINOPHILS % (MANUAL) 1 % (0-7)
[2018-02-24 16:43] LABS: BILIRUBIN,URINE NEGATIVE (NEGATIVE); BLOOD, URINE NEGATIVE (NEGATIVE); CLARITY/URINE CLEAR (CLEAR); COLOR,URINE YELLOW (YELLOW); GLUCOSE,URINE NEGATIVE (NEGATIVE); KETONES,URINE NEGATIVE (NEGATIVE); LEUKOCYTE ESTERASE ,URINE NEGATIVE (NEGATIVE); NITRITE, URINE NEGATIVE (NEGATIVE); PH,URINE 5.5 (5.0-8.0); PROTEIN URINE 2+ (NEGATIVE); UROBILINOGEN,URINE 0.2 (0.2-1.0)
[2018-02-24 16:48] LABS: BACTERIA,URINE MODERATE /HPF (None Seen); HYALINE CASTS, URINE 0-10 /LPF (None Seen)
[2018-02-24] MEDS ORDERED: KCL 20 mEq in D5NS 1000 mL 1,000 ML IV ONE (17:00)
[2018-02-24 17:50] VITALS: BP_SYST 74
[2018-02-24] MEDS ORDERED: NOREPINEPHRINE 4 MG/4 ML VIAL IV ONE (17:51)
[2018-02-24 18:00] VITALS: BP_SYST 76
[2018-02-24 19:00] VITALS: BP_SYST 88
[2018-02-24] MEDS: MORPHINE 4 MG/ML INJ. SYRINGE IVP PRN (19:40)
[2018-02-24 20:00] VITALS: BP_SYST 74
[2018-02-24 21:00] VITALS: BP_SYST 69
[2018-02-25] MEDS: MORPHINE 4 MG/ML INJ. SYRINGE IVP PRN ×2 (07:01→12:39)
== END 2018-02-25 13:05 | disposition expired | DRG 871 ==
LOC: SED 14:10 → SIC 16:56 → SMU 17:07 → SIC 17:34 → SMU 21:25
PROVIDERS: ADMIT Family Medicine; ATTEND Family Medicine
DX: A41.9 Sepsis, unspecified organism (principal); J69.0 Pneumonitis due to inhalation of food and vomit; J96.00 Acute respiratory failure, unspecified whether with hypoxia or hypercapnia; R65.21 Severe sepsis with septic shock; I13.0 Hypertensive heart and chronic kidney disease with heart failure and stage 1 through stage 4 chronic kidney disease, or unspecified chronic kidney disease; J44.9 Chronic obstructive pulmonary disease, unspecified; Z66 Do not resuscitate; E03.9 Hypothyroidism, unspecified; F03.90 Unspecified dementia, unspecified severity, without behavioral disturbance, psychotic disturbance, mood disturbance, and anxiety; N18.9 Chronic kidney disease, unspecified; Z51.5 Encounter for palliative care; G40.909 Epilepsy, unspecified, not intractable, without status epilepticus; F41.9 Anxiety disorder, unspecified; I50.9 Heart failure, unspecified; M10.9 Gout, unspecified; Z87.891 Personal history of nicotine dependence
CPT/HCPCS: 36415; 71045; 80053; 81000-TC; 83690-TC; 84484; 85007; 85027; 87081; 87086; 96360; 99285; J2270; J7030; J7050